=== PATIENT | female | born 1930 | race Caucasian/White ===

== ENCOUNTER 2019-07-02 21:40 | Emergency (ER) | payer OTHER ==
[2019-07-02 21:49] VITALS: TEMP 98.5; BMI 17.1
--- NOTE | 2019-07-02 23:07 | PDOC ---
History of Present Illness - General Chief Complaint: Blood Pressure Problem Stated Complaint: HYPERTENSION Time Seen by Provider: 07/02/19 23:04 Past History - Past Medical History Allergies/Adverse Reactions: Allergies Allergy/AdvReac Type Severity Reaction Status Date / Time No Known Allergies Allergy Verified 07/02/19 21:43 Home Medications: Ambulatory Orders Hydralazine HCl 10 mg PO DAILY 10 Days #10 tablet 07/03/19 COPD: No HTN: Yes Other medical history: glaucoma - Surgical History Appendectomy: Yes - Immunization History Immunization Up to Date: Yes - Psycho Social/Smoking Cessation Hx Smoking History: Never smoked Hx Alcohol Use: No Drug/Substance Use Hx: No Substance Use Type: None *Physical Exam - Vital Signs Last Vital Signs Temp Pulse Resp BP Pulse Ox 98.5 F 94 H 18 209/84 H 97 07/02/19 21:45 07/02/19 21:45 07/02/19 21:45 07/02/19 21:45 07/02/19 21:45 ED Treatment Course - LABORATORY CBC & Chemistry Diagram: 07/03/19 00:15 07/03/19 00:15 Medical Decision Making - Medical Decision Making 07/02/19 23:33 HPI: 89yo F with hx of HTN and dx of unknown arrythmia years ago presents from home with elevated BP 209/84 since 1900 today (self-reported baseline 170s/70s) and intermittent episodes of increased fatigue x1-2mo, no known inciting events, both exertional and non-exertional, improved with rest, no associated pain or symptoms. Pt notes she has had increased stress and work for the past few months due to all 16 of her family members dying and her doing paperwork. Lives alone at home. Pt was previously on unknown medication for HTN but pt self- discontinued in 2013 because she thought her BP is fine. Pt hasn't seen a doctor since 2012. Denies fever, chills, headache, dizziness, vertigo, numbness/ tingling, weakness, vision changes, shortness of breath, cough, chest pain, palpitations, leg swelling, abdominal pain, blood in stool, diarrhea, constipation, nausea, vomiting, dysuria, hematuria, confusion, hx DVT/PE, FHx early CAD, calf tenderness, recent surgeries, recent travel, sick contacts, malignancy. ROS: Constitutional: Positive for fatigue. Negative for chills, fever, diaphoresis. HENT: Negative for sore throat, rhinorrhea, congestion. Eyes: Negative for visual disturbance. Respiratory: Negative for shortness of breath, cough, and wheezing. Cardiovascular: Negative for chest pain, palpitations, and leg swelling. Gastrointestinal: Negative for abdominal pain, blood in stool, constipation, diarrhea, nausea, and vomiting. Genitourinary: Negative for dysuria, flank pain, and hematuria. Musculoskeletal: Negative for myalgias, back pain, and neck pain. Skin: Negative for rash. Neurological: Negative for light-headedness, dizziness, vertigo, syncope, weakness, numbness and headaches. Psychiatric/Behavioral: Negative for behavioral problems and confusion. PE: Gen: Alert, NAD, comfortable-appearing. HEENT: PERRL, EOMI, MMM, NCAT. No conjunctival pallor. Sclera are non-icteric. CV: Regular rate and irregular rhythm. No murmurs, rubs, or gallops. PULM: No resp distress. CTAB, no wheezes, rales, or rhonchi. ABD: soft, NT/ND, no rebound tenderness or guarding, no CVA tenderness. BACK: No TTP of c/t/l-spine. No step-offs or deformities. MSK: No bony deformities. 2+ pulses in all extremities. NEURO: AAOx3. PERRL. CN 2-12 intact. 5/5 strength in all extremities. Sensation to light touch intact in all extremities. No pronator drift. No dysmetria. No dysdiadochokinesia. No abnormal nystagmus. Normal gait. EXTREMITIES: No cyanosis. No clubbing. No edema. No calf tenderness. PSYCH: Normal mood and thought pattern. +pressured speech. SKIN: Warm and dry. Normal capillary refill. No rashes. No jaundice. MDM: 89yo F with hx of HTN and dx of unknown arrythmia years ago presents from home with elevated BP 209/84 since 1900 today (self-reported baseline 170s/70s) and intermittent episodes of increased fatigue x1-2mo with increased stress. Of note , pt self-discontinued HTN medications in 2013 and hasn't seen a doctor since 2012. VS reviewed: BP 209/84 here, tachycardic into 90s, afebrile. HTN most likely due to noncompliance with HTN medications and increased stress. Chronic fatigue most likely due to increased stress and work. Low concern for cardiac etiology due to lack of CP, palpitations, SOB, diaphoresis, or nausea, but due to age and HTN, r/o ACS/WI with EKG and tropx1. Very low suspicion for PE due to lack of CP, SOB, tachycardia, or s/s of DVT; Wells 0; no further testing indicated for PE. Also consider infectious etiologies, anemia, thyroid pathology, or metabolic derangements - r/o w/CMP, CBC, Mg, Phos, and TSH. -CBC, CMP, Mg, Phos, Cardiac profile, TSH -EKG -Dispo: likely d/c home pending w/u EKG reviewed: sinus rhythm with premature supraventricular complexes, left anterior fascicular block, 92bpm, QTc 427ms, TWIs in III, no signs of ischemia 07/02/19 23:54 Repeat BP 172/143. Hydralazine 25 ordered. 07/03/19 01:34 Labs reviewed. No concerning findings. Pt denies any fatigue or complaints. BP 161/75 s/p hydralazine. Will dc home with PCP and cardio f/u and hydralazine. Return precautions given. Pt understands all dc instructions and all questions were answered. Discharge - Discharge Information Problems reviewed: Yes Clinical Impression/Diagnosis: High blood pressure Condition: Improved Disposition: HOME - Admission No - Additional Discharge Information Prescriptions: Hydralazine HCl 10 mg PO DAILY 10 Days #10 tablet - Follow up/Referral Referrals: Krzysztof Peace MD [Staff Physician] - Salma Peace [Staff Physician] - [facility] [place] [Provider Group] - Patient Discharge Instructions Patient Printed Discharge Instructions: DI for High Blood Pressure Additional Instructions: You have been seen in the Emergency Department for your fatigue and high blood pressure. Your EKG and labs show no signs concerning for an emergent condition such as a heart attack, thyroid abnormality, anemia, or infection. Your blood pressure returned to your normal with Hydralazine. We have prescribed you Hydralazine for your blood pressure - take as prescribed. You will need further evaluation and monitoring of your blood pressure. We have given you referrals to a [facility] Peace and to an [facility] to set up a primary care doctor. Call both offices in the morning to set up an appointment for this week. Return to the ED immediately if you experience chest pain, difficulty breathing , dizziness, fainting, vomiting, or any other new or worsening symptom. - Post Discharge Activity
[2019-07-02] MEDS ORDERED: hydrALAZINE HCL 25 MG TABLET (FP) PO ONE (23:53)
[2019-07-02] MEDS ORDERED: hydrALAZINE HCL 25 MG TABLET (FP) ONE (23:55)
--- NOTE | 2019-07-03 00:02 | PDOC ---
Attending Attestation - Resident Resident Name: Jossie Muñoz - ED Attending Attestation I have performed the following: I have examined & evaluated the patient, The case was reviewed & discussed with the resident, I agree w/resident's findings & plan, Exceptions are as noted - HPI HPI: 07/03/19 00:00 89 yo female who came ot the ER because she has been feeling tired for the psat 2 months and so took her BP at home and the systoloc BP was above 200 - Physicial Exam PE: 07/03/19 00:02 Thin verbose 89 yo female presents with concern for fatigue for several months and elevated BP head ncat neck supple lungs cta b/l cvs [id number] abd flat skin warm and dry neuro axox3 ,moving all limbs,ambulatory psych pressured speech - Medical Decision Making 07/03/19 00:09 -this 89 yo female has a h/o HTN but stopped her BP meds five years ago about the same time she stopped seeing her PCP -she has been fatigued for the past few months and took her BP at home and found it elevated so she came to ER she denies any chest pain,shortness of breath,nausea,vomiting or visual changes 07/03/19 01:08 plan review labs, ekg, refer to [facility] 07/03/19 01:09 ekg was NSR @ 92 bpm 07/03/19 01:36 her repeat blood pressure =161/75 negative troponin ekg no signs of ischemia plan d/c home with follow up She states she will go to see Dr Peace
[2019-07-03 00:26] VITALS: PULSE 90
[2019-07-03 00:34] LABS: BASO % 0.4 % (0-2.0); EOS % 0.6 % (0-4.5); HEMATOCRIT 40.1 % (32.4-45.2); HEMOGLOBIN 13.3 GM/dL (10.7-15.3); MCH 32.1 pg (25.7-33.7); MCHC 33.1 g/dl (32.0-36.0); MEAN CELL VOLUME 96.7 fl (80-96); MONO % 7.1 % (3.8-10.2); NEUT % 79.9 % (42.8-82.8); PLATELET COUNT 173 K/MM3 (134-434); RBC 4.14 M/mm3 (3.60-5.2); RDW 13.3 % (11.6-15.6); WHITE BLOOD COUNT 6.9 K/mm3 (4.0-10.0)
[2019-07-03] MEDS ORDERED: amLODIPine BESYLATE 10 MG TABLET (FP) PO ONE (01:07)
[2019-07-03 01:08] LABS: ALBUMIN 4.2 g/dl (3.4-5.0); ALK PHOS 88 U/L (45-117); ANION GAP 10 MMOL/L (8-16); BILIRUBIN,TOTAL 0.4 mg/dL (0.2-1); BLOOD UREA NITROGEN 17.4 mg/dL (7-18); CALCIUM 8.8 mg/dL (8.5-10.1); CHLORIDE 103 mmol/L (98-107); CO2 27 mmol/L (21-32); CREATININE 0.7 mg/dL (0.55-1.3); GLUCOSE,RANDOM 114 mg/dL (74-106); MAGNESIUM 2.1 mg/dL (1.8-2.4); PHOSPHOROUS 3.6 mg/dL (2.5-4.9); POTASSIUM 4.1 mmol/L (3.5-5.1); SGOT/AST 20 U/L (15-37); SGPT/ALT 24 U/L (13-61); SODIUM 140 mmol/L (136-145); TOT PROT 6.9 g/dl (6.4-8.2)
[2019-07-03 01:34] VITALS: BP 161/75
--- NOTE | 2019-07-03 10:15 | EKG ---
Test Reason : Blood Pressure : / mmHG Vent. Rate : 092 BPM Atrial Rate : 092 BPM P-R Int : 190 ms QRS Dur : 074 ms QT Int : 346 ms P-R-T Axes : 029 -46 006 degrees QTc Int : 427 ms SINUS RHYTHM WITH PREMATURE SUPRAVENTRICULAR COMPLEXES LEFT ANTERIOR FASCICULAR BLOCK MINIMAL VOLTAGE CRITERIA FOR LVH, MAY BE NORMAL VARIANT ABNORMAL ECG NO PREVIOUS ECGS AVAILABLE Confirmed by ELAINE SOTELO, KATHE ([id number]) on 07/03/2019 10:15:13 AM Referred By: Confirmed By:KATHE HENRY MD
== END 2019-07-03 01:56 | disposition home or self-care (01) ==
LOC: JER 21:40
DX: I10 Essential (primary) hypertension (principal); Z91.14 Patient's other noncompliance with medication regimen
CPT/HCPCS: 36415; 80053; 82550; 82553; 83735; 84100; 84443; 84484; 85025; 93005; 93010; 99283-25